=== PATIENT | male | born 1980 | race American Indian/Alaskan Native ===

== ENCOUNTER 2017-08-29 12:24 | Emergency (ER) | payer OTHER ==
[2017-08-29 12:47] LABS: Basophils # (Auto) 0.1 K/mm3 (0.0-0.1); Basophils % (Auto) 1.3 % (0.0-1.8); Eosinophils # (Auto) 0.1 K/mm3 (0.0-0.4); Eosinophils % (Auto) 2.6 % (0.0-4.3); Hematocrit 45.5 % (35.5-45.6); Hemoglobin 15.3 gm/dl (11.8-15.2); Lymphocytes # (Auto) 1.7 K/mm3 (1.2-5.4); Lymphocytes % (Auto) 32.8 % (13.4-35.0); Mean Corpuscular HGB Conc 34 % (32-34); Mean Corpuscular Hemoglobin 32 pg (28-32); Mean Corpuscular Volume 95 fl (84-94); Monocytes # (Auto) 0.5 K/mm3 (0.0-0.8); Monocytes % (Auto) 9.8 % (0.0-7.3); Platelet Count 150 K/mm3 (140-440); Red Blood Count 4.82 M/mm3 (3.65-5.03)
[2017-08-29 13:04] LABS: Calcium 9.1 mg/dL (8.4-10.2)
[2017-08-29 13:22] LABS: Bilirubin,Urine NEG (Negative); Blood,Urine NEG (Negative); Color,Urine Yellow (Yellow); Nitrite,Urine NEG (Negative); Urobilinogen,Urine < 2.0 mg/dL (<2.0)
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
--- NOTE | 2017-08-29 15:35 | XRay Report ---
LUMBAR SPINE RADIOGRAPHS: INDICATION: Back injury. COMPARISON: None similar. FINDINGS: AP and lateral lumbar spine radiographs demonstrate preserved vertebral body stature, alignment and disc heights. Nonobstructive bowel gas pattern. Normal bilateral SI joints. CONCLUSION: No acute lumbar radiographic abnormality. Thank you for the opportunity to participate in this patient's care.
--- NOTE | 2017-08-29 15:40 | XRay Report ---
CERVICAL SPINE RADIOGRAPHS INDICATION: Neck injury. COMPARISON: None similar. FINDINGS: AP, lateral, open mouth and swimmer's views of the cervical spine, 4 images demonstrate symmetric lateral masses. Dens partly obscured due to overlying skull, though it appears unremarkable inferiorly. Intact craniocervical articulation on the lateral view with visualization up to C6-7 disc with faintly seen C7 due to shoulder soft tissues. Normal predental space and prevertebral soft tissues. Normal vertebral body stature and alignment. Relatively preserved disc heights. Clear visualized lung apices. Few radiopaque dental fillings. CONCLUSION: No acute cervical spine radiographic abnormality, as described. Please correlate. Thank you for the opportunity to participate in this patient's care.
[2017-08-29 16:31] VITALS: BP 168/108
== END 2017-08-29 16:30 | disposition home or self-care (01) ==
LOC: ED 12:24
DX: S13.9XXA Sprain of joints and ligaments of unspecified parts of neck, initial encounter (principal); S39.012A Strain of muscle, fascia and tendon of lower back, initial encounter; I10 Essential (primary) hypertension; V87.7XXA Person injured in collision between other specified motor vehicles (traffic), initial encounter; Y93.89 Activity, other specified; Y99.8 Other external cause status; Y92.410 Unspecified street and highway as the place of occurrence of the external cause
CPT/HCPCS: 36415; 72040; 72100; 80048; 81001; 85025; 99284